=== PATIENT | male | born 1980 | race Caucasian/White ===

== ENCOUNTER 2020-02-20 20:59 | Outpatient (REF) | payer OTHER, SELFPAY ==
[2020-02-20 21:58] LABS: ALT 49 U/L (16-63); AST 24 U/L (15-37); Albumin 4.4 g/dL (3.4-5.0); Alkaline Phosphatase 71 U/L (46-116); Bilirubin, Direct 0.09 mg/dL (0.00-0.20); Bilirubin, Total 0.3 mg/dL (0.2-1.0); Total Protein 7.5 g/dL (6.4-8.2)
[2020-02-20 22:10] LABS: Calculated LDL 209 mg/dL (<100); Cholesterol 283 mg/dL (<200); HDL Cholesterol 35 mg/dL (40-60); Triglyceride 196 mg/dL (<150)
== END 2020-02-20 21:19 ==
LOC: NCHCN 20:59
PROVIDERS: Visit Provider Nurse Practitioner Community Health
DX: Z13.220 Encounter for screening for lipoid disorders (principal); R10.11 Right upper quadrant pain
CPT/HCPCS: 80061; 80076

== ENCOUNTER 2020-05-02 18:51 | Outpatient (REF) | payer OTHER, SELFPAY ==
[2020-05-02 22:37] LABS: ALT 70 U/L (16-63); AST 34 U/L (15-37); Albumin 4.4 g/dL (3.4-5.0); Alkaline Phosphatase 91 U/L (46-116); Bilirubin, Total 0.4 mg/dL (0.2-1.0); Calculated LDL 71 mg/dL (<100); Cholesterol 146 mg/dL (<200); HDL Cholesterol 35 mg/dL (40-60); Total Protein 7.5 g/dL (6.4-8.2); Triglyceride 201 mg/dL (<150)
[2020-05-02 22:50] LABS: Bilirubin, Direct 0.2 mg/dL (0.0-0.2)
== END 2020-05-02 18:52 | disposition home or self-care (01) ==
LOC: NCHCN 18:51
PROVIDERS: Visit Provider Nurse Practitioner Community Health
DX: Z13.220 Encounter for screening for lipoid disorders (principal); Z51.81 Encounter for therapeutic drug level monitoring
CPT/HCPCS: 80061; 80076

== ENCOUNTER 2021-12-02 12:01 | Outpatient (REF) | payer OTHER, SELFPAY ==
[2021-12-02 14:49] LABS: ALT 60 U/L (16-63); AST 40 U/L (15-37); Albumin 4.2 g/dL (3.4-5.0); Alkaline Phosphatase 75 U/L (46-116); Anion Gap 8.2 mmol/L (3-11); BUN 18 mg/dL (7-18); Bilirubin, Total 0.5 mg/dL (0.2-1.0); CO2 25.8 mmol/L (21.0-32.0); CREATININE 1.2 mg/dL (0.70-1.30); Calcium 9.3 mg/dL (8.5-10.1); Calculated LDL 97 mg/dL (<100); Chloride 106 mmol/L (98-107); Cholesterol 184 mg/dL (<200); Estimated GFR 76.95 (mL/min/1.73m2); Glucose 90 mg/dL (74-106); HDL Cholesterol 38 mg/dL (40-60); Potassium 4.3 mmol/L (3.5-5.1); Sodium 140 mmol/L (136-145); Total Protein 7.6 g/dL (6.4-8.2); Triglyceride 249 mg/dL (<150)
== END 2021-12-02 12:02 | disposition home or self-care (01) ==
LOC: NCHCN 12:01
PROVIDERS: Visit Provider Nurse Practitioner Family
DX: E78.5 Hyperlipidemia, unspecified (principal)
CPT/HCPCS: 80053; 80061

== ENCOUNTER 2022-12-08 11:21 | Outpatient (REF) | payer BC, SELFPAY ==
[2022-12-08 16:03] LABS: ALT 47 U/L (16-63); AST 30 U/L (15-37); Albumin 4.3 g/dL (3.4-5.0); Alkaline Phosphatase 81 U/L (46-116); Anion Gap 9.4 mmol/L (3-11); BUN 17 mg/dL (7-18); Bilirubin, Total 0.6 mg/dL (0.2-1.0); CO2 26.6 mmol/L (21.0-32.0); Calcium 9.5 mg/dL (8.5-10.1); Calculated LDL 97 mg/dL (<100); Chloride 106 mmol/L (98-107); Cholesterol 176 mg/dL (<200); Estimated GFR 95.18 (mL/min/1.73m2); Glucose 99 mg/dL (74-106); HDL Cholesterol 40 mg/dL (40-60); Potassium 4.2 mmol/L (3.5-5.1); Sodium 142 mmol/L (136-145); Total Protein 7.4 g/dL (6.4-8.2); Triglyceride 197 mg/dL (<150)
== END 2022-12-08 11:22 | disposition home or self-care (01) ==
LOC: NCHCN 11:21
PROVIDERS: Visit Provider Nurse Practitioner Family
DX: E78.5 Hyperlipidemia, unspecified (principal); R74.01 Elevation of levels of liver transaminase levels; Z00.00 Encounter for general adult medical examination without abnormal findings
CPT/HCPCS: 80053; 80061

== ENCOUNTER 2024-11-01 10:16 | Outpatient (REF) | payer BC, SELFPAY ==
[2024-11-01 15:05] LABS: HCT 42.9 % (40.0-50.0); HGB 14.3 g/dL (13.5-17.5); MCH 29.5 pg (27.0-33.0); MCHC 33.3 % (32.0-36.0); MCV 89 fL (80-95); MPV 11.2 fL (8.0-11.0); Platelet Count 262 10^3/uL (130-400); RBC 4.84 10^6/uL (4.36-5.78); RDW 11.9 % (11.8-14.1); RDW-SD 39.0 fL; WBC 7.13 10^3/uL (4.4-10.8)
[2024-11-01 16:51] LABS: ALT 57 U/L (16-63); AST 24 U/L (15-37); Albumin 4.3 g/dL (3.4-5.0); Alkaline Phosphatase 75 U/L (46-116); Anion Gap 10.6 mmol/L (3-11); BUN 18 mg/dL (7-18); Bilirubin, Total 0.5 mg/dL (0.2-1.0); CO2 27.4 mmol/L (21.0-32.0); Calcium 9.8 mg/dL (8.5-10.1); Calculated LDL 149 mg/dL (<100); Chloride 104 mmol/L (98-107); Cholesterol 236 mg/dL (<200); Estimated GFR 94.00 (mL/min/1.73m2); Glucose 100 mg/dL (74-106); HDL Cholesterol 39 mg/dL (>or=40); Potassium 4.5 mmol/L (3.5-5.1); Sodium 142 mmol/L (136-145); Total Protein 7.3 g/dL (6.4-8.2); Triglyceride 243 mg/dL (<150)
[2024-11-01 18:10] LABS: Hemoglobin A1C 5.4 % (<5.7)
[2024-11-01 20:52] LABS: LDH 175 U/L (85-227)
== END 2024-11-01 10:17 | disposition home or self-care (01) ==
LOC: NCHCN 10:16
PROVIDERS: Visit Provider Nurse Practitioner Family
DX: R60.9 Edema, unspecified (principal); Z13.1 Encounter for screening for diabetes mellitus; E78.5 Hyperlipidemia, unspecified
CPT/HCPCS: 80053; 80061; 85027; 83036; 83615